=== PATIENT | male | born 1965 | race Caucasian/White ===

== ENCOUNTER 2017-06-06 15:54 | Emergency (ER) | payer SELFPAY ==
[~2017-06-06] VITALS: Ht 180.3 cm; Wt 122.7 kg
[~2017-06-06 15:54] MED LIST: ADULT LOW DOSE81 M1 PO; ASPIRIN325 MG PO; CIPRO500 MG PO; GLIPIZIDE10 MG PO; LISINOPRIL10 MG PO; METFORMIN HCL1000 MG PO; METFORMIN HCL500 MG PO; PRAVASTATIN SOD40 MG PO; Vicodin,Norco 5/325 PO; ZESTRIL10 MG PO
[2017-06-06 16:05] VITALS: BP 119/86
[2017-06-06] MEDS ORDERED: KEFLEX500 MG PO (17:08)
[2017-06-06] MEDS ORDERED: BACTRIM,SEPT1 TABLET PO (17:08)
== END 2017-06-06 17:12 | disposition home or self-care (01) ==
LOC: EME 15:54
DX: L03.113 Cellulitis of right upper limb (principal); E11.9 Type 2 diabetes mellitus without complications; Z79.84 Long term (current) use of oral hypoglycemic drugs; E78.5 Hyperlipidemia, unspecified; I10 Essential (primary) hypertension; Z79.82 Long term (current) use of aspirin; Z87.891 Personal history of nicotine dependence
CPT/HCPCS: 99281; 99283